=== PATIENT | female | born 1980 | race Caucasian/White ===

== ENCOUNTER 2024-04-29 15:07 | Emergency (ER) | payer OTHER ==
[2024-04-29 15:22] VITALS: BP 109/67; PULSE 92; RESP 16; TEMP 98.8; BMI 29.2
[2024-04-29] MEDS ORDERED: IBUPROFEN 400 MG TABLET (FP) PO ONE (16:04)
[2024-04-29] MEDS: IBUPROFEN 400 MG TABLET (FP) PO ONE (16:23)
[2024-04-29 16:31] LABS: BASO % 0.5 % (0-2.0); EOS % 2.5 % (0-4.5); HEMATOCRIT 41.4 % (32.4-45.2); HEMOGLOBIN 13.5 GM/dL (10.7-15.3); MCH 29.2 pg (25.7-33.7); MCHC 32.7 g/dl (32.0-36.0); MEAN CELL VOLUME 89.2 fl (80-96); MEAN PLT VOLUME 7.1 fl (7.5-11.1); MONO % 9.6 % (3.8-10.2); NEUT % 56.4 % (42.8-82.8); PLATELET COUNT 216 10^3/uL (134-434); RBC 4.64 M/mm3 (3.60-5.2); RDW 13.7 % (11.6-15.6); WHITE BLOOD COUNT 7.7 K/mm3 (4.0-10.0)
[2024-04-29 16:41] LABS: POTASSIUM 4.5 mmol/L (3.5-5.1)
[2024-04-29 16:43] LABS: ALBUMIN 3.4 g/dl (3.4-5.0); MAGNESIUM 2.3 mg/dL (1.8-2.4)
[2024-04-29 16:44] LABS: BLOOD UREA NITROGEN 14.5 mg/dL (7-18)
[2024-04-29 16:46] LABS: CREATININE 0.9 mg/dL (0.55-1.3)
[2024-04-29 16:48] LABS: BILIRUBIN,TOTAL 0.4 mg/dL (0.2-1); TOT PROT 6.8 g/dl (6.4-8.2)
== END 2024-04-29 23:38 | disposition home or self-care (01) ==
LOC: JER 15:07
DX: R06.02 Shortness of breath (principal); Z20.822 Contact with and (suspected) exposure to COVID-19
CPT/HCPCS: 0241U-QW; 36415; 71046-TC-FY; 71275-TC; 80053; 83735; 84484; 84703; 85025; 85379; 93005; 93010; 99285-25; Q9967